=== PATIENT | female | born 1975 | race Caucasian/White ===

== ENCOUNTER 2018-04-03 09:08 | Emergency (ER) | payer OTHER ==
[2018-04-03 09:33] VITALS: BP 110/67
--- NOTE | 2018-04-03 09:53 | UC ---
Skin Complaint HPI - HPI Summary HPI Summary: Patient presents to urgent care following a poison chinyere exposure. Patient states on Thursday she was in the field pulling out weeds. Patient states she had some poison chinyere to her bilateral wrists. Patient has been treating with calamine lotion. Patient states she also has allergies and intermittently takes Benadryl or Christie. Patient states this morning she woke up and both of her eyes were puffy. Patient states she denies any eye pain or vision changes states she can tell that she's got some swelling. No difficulty swallowing. No headache or vision changes. No nausea vomiting. No difficulty breathing. Patient states she's only ever had poison chinyere once before. Patient has not taken any medications or applied anything topical today. Patient's medications reviewed this visit - History of Current Complaint Chief Complaint: UCRash Time Seen by Provider: 04/03/18 09:52 Stated Complaint: ALLERGIC REACTION-SKIN COMPLAINT Hx Obtained From: Patient Hx Last Menstrual Period: 03/29/18 Onset/Duration: Gradual Onset Skin Exposure Onset/Duration: Days Ago Onset Severity: Mild Pain Intensity: 0 - Allergy/Home Medications Allergies/Adverse Reactions: Allergies Allergy/AdvReac Type Severity Reaction Status Date / Time No Known Allergies Allergy Verified 04/03/18 09:25 Home Medications: Home Medications diPHENhydraMINE PO* [Benadryl PO 25 MG TAB*] 25 mg PO Q6H PRN 04/03/18 [History Confirmed 04/03/18] Review of Systems Constitutional: Negative Skin: Rash All Other Systems Reviewed And Are Negative: Yes PMH/Surg Hx/FS Hx/Imm Hx Previously Healthy: Yes - Surgical History Surgical History: None - Family History Known Family History: Positive: Other - non contributory - Social History Occupation: Employed Full-time Lives: With Family Alcohol Use: None Substance Use Type: None Smoking Status (MU): Never Smoked Tobacco Physical Exam - Summary Physical Exam Summary: Vital Signs Reviewed: Yes A+Ox3, no distress Eyes: Conjunctiva Clear, DEVENDRA, EOM intact , no injection ENT: Hearing grossly normal TM x2 clear mmmoist no exudate, no intraoral edema neck: supple Respiratory: Positive: No respiratory distress, No accessory muscle use Cardiovascular: skin color reflect adequate perfusion Musculoskeletal Exam: STARR x 4 without difficulty Neurological: Positive: Alert, ambulatory without difficulty Psychological: Positive: Normal Response To Family Skin: Positive: no rash, no ecchymosis, pt with dry maculopapular rash on erythematous base b/l wrists - covered with calomine lotion Pt with mild b/l puffinessness with cobblestone appearance under b/l eyes no erythema no other facial edema Triage Information Reviewed: Yes Vital Signs: Initial Vital Signs Temp 98 F 04/03/18 09:26 Pulse 68 04/03/18 09:26 Resp 18 04/03/18 09:26 BP 110/67 04/03/18 09:26 Pulse Ox 99 04/03/18 09:26 Course/Dx - Course Course Of Treatment: Patient presents with contact dermatitis to her bilateral wrists that she thinks was poison chinyere occurring on Thursday. Today patient woke up with some cobblestone edema in the bilateral eyes and upper cheeks. No erythema. No drainage. No difficulty with airway. Suspect systemic reaction to poison chinyere contact dermatitis. Will write long prednisone taper. Recommend patient take antihistamine. Cool packs. Strict return precautions. Patient comfortable in agreement with plan. - Diagnoses Provider Diagnoses: contact dermatitis Discharge - Sign-Out/Discharge Documenting (check all that apply): Patient Departure, Post-Discharge Follow Up All imaging exams completed and their final reports reviewed: No Studies - Discharge Plan Condition: Stable Disposition: HOME Prescriptions: predniSONE TAB* [Deltasone 20 MG TAB*] 20 mg PO DAILY #13 tab Patient Education Materials: Poison Chinyere (ED) Referrals: Zohaib LING,Chela Abdi [Primary Care Provider] - Additional Instructions: - Take prednisone exactly as prescribed until gone - starting today - Okay to take Benadryl (1-2 tablets) every 6 hours as needed. This medication may cause drowsiness - do NOT drive, operate machinery or drink alcohol while taking Benadryl - It is recommended you take an allergy medication such as Claritin, Christie, Zyrtec -Avoid getting over heated (hot showers, hot tubs, exercise) for at least 48 hours - Try to avoid aspirin, NSAIDs (Motrin, Aleve, Naprosyn) for 2-3 days - Okay to apply cool compresses to the area of inflammation -Contact your doctor or return here with questions or concerns - Billing Disposition and Condition Condition: STABLE Disposition: Home
== END 2018-04-03 10:10 | disposition home or self-care (01) ==
LOC: UCCORT 09:08
DX: L25.9 Unspecified contact dermatitis, unspecified cause (principal)
CPT/HCPCS: 99202; G0463